=== PATIENT | male | born 1960 | race Caucasian/White ===

== ENCOUNTER 2018-03-04 07:55 | Emergency (ER) | payer OTHER ==
[~2018-03-04] VITALS: Ht 177.8 cm; Wt 97.5 kg
[2018-03-04] MEDS ORDERED: FISH OIL 1,001000 M2 PO (07:58)
[2018-03-04] MEDS ORDERED: LISINOPRIL10 MG PO (07:58)
[2018-03-04] MEDS ORDERED: LIPITOR10 MG PO (07:58)
[2018-03-04] MEDS ORDERED: KEFLEX500 M1 PO (09:15)
[2018-03-04] MEDS ORDERED: NORCO 5-325 TA1 EACH PO (09:15)
[2018-03-04 09:27] VITALS: BP 160/85
== END 2018-03-04 09:28 | disposition home or self-care (01) ==
LOC: M.ERS 07:55
DX: S91.012A Laceration without foreign body, left ankle, initial encounter (principal); W26.8XXA Contact with other sharp object(s), not elsewhere classified, initial encounter; Y93.89 Activity, other specified; Y92.89 Other specified places as the place of occurrence of the external cause; Y99.8 Other external cause status